=== PATIENT | male | born 1955 | race Caucasian/White ===

== ENCOUNTER 2020-03-24 08:58 | Outpatient (CLI) | payer MEDICARE, OTHER, SELFPAY ==
--- NOTE | ~2020-03-24 | CT_ITS ---
EXAMINATION: CT abdomen pelvis w con DATE: 03/24/2020 09:34 INDICATION: Prostate cancer TECHNIQUE: Computed tomography (CT) of the abdomen and pelvis was performed with 100 cc Omnipaque 350 intravenous contrast. The dose-length product was 1234.51 mGy-cm. Automated exposure control and ite rative reconstruction technique were employed. COMPARISON: None. FINDINGS: Heart size normal. No significant pleural or pericardial effusion. There are scattered calc ified granulomas. There are small low-density lesions in the liver and spleen, most likely benign cys ts. Gallbladder is present. The pancreas, adrenal glands are unremarkable. There are left renal parapelvic cysts. There are bilat eral renal cysts. Prostate gland is enlarged. Bladder wall is mildly thickened. Nonobstructive bowel gas pattern. No blastic or lytic lesions. No acute osseous abnormality. No free air or free fluid. IMPRESSION: 1. No evidence for metastatic disease. 2: Bladder wall thickening which may be due to outlet obstruction from enlarged prostate gland and/or cystitis. Reviewed, dictated and finalized at location B. BRAKE TECHNICIAN
[2020-03-24 09:28] LABS: Estimated Glomerular Filt Rate > 60
== END 2020-03-24 08:59 | disposition home or self-care (01) ==
PROVIDERS: PCP Internal Medicine; Visit Provider Urology
DX: C61 Malignant neoplasm of prostate (principal)
CPT/HCPCS: 74177; Q9967

== ENCOUNTER 2020-06-06 07:47 | Outpatient (CLI) | payer MEDICARE, OTHER, SELFPAY ==
--- NOTE | ~2020-06-06 | XR_ITS ---
XR chest 2V DATE: 06/06/2020 08:44 INDICATION: Preoperative evaluation. Prostate cancer. Hypertension. TECHNIQUE: PA and lateral views COMPARISON: None FINDINGS: Normal heart size. Mild aortic tortuosity. No hilar or mediastinal enlargement. No pulmonary infiltrate or consolidation, pleural effusion or pulmonary vascular congestion or pneumo thorax is detected. IMPRESSION: No active cardiopulmonary disease Reviewed, dictated and finalized at location A. RD CHANGER
--- NOTE | 2020-06-06 08:26 | ECG_ITS ---
Measurements Intervals [place] Rate: 69 P: 37 NH: 151 QRS: -31 QRSD: 105 T: 37 QT: 381 QTc: 411 Interpretive Statements SINUS RHYTHM LEFT AXIS DEVIATION BORDERLINE T WAVE ABNORMALITY- INFERIOR LEADS BASELINE ARTIFACT- I, II, AVR, V3-V5 BORDERLINE ECG Electronically Signed On 06-06-2020 8:57:52 COMMISSIONING EDITOR by Darrius Muniz D.O.
[2020-06-06 09:10] LABS: Add Urine Microscopic? NO; Appearance Urine Clear (Clear); Bilirubin Urine Negative (Negative); Blood Urine Negative (Negative); Color Urine Straw (Yellow); Glucose Urine UA Negative (Negative); Ketones Urine Negative (Negative); Leukocyte Esterase Ur Negative LEU/UL (Negative); Nitrate Urine Negative (Negative); Protein Urine Negative (Negative); Specific Grav Ur 1.016 (1.001-1.035); Urobilinogen Urine Negative mg/dL (<2.0)
[2020-06-06 09:17] LABS: Alanine Aminotransferase 24 U/L (4-50); Albumin Level 4.1 g/dL (3.5-5.1); Alkaline Phosphatase 70 U/L (38-126); Anion Gap 5 mmol/L (8-16); Aspartate Amino Transferase 27 U/L (17-59); Bilirubin,Total 0.5 mg/dL (0.2-1.3); Blood Urea Nitrogen 26 mg/dL (9-20); Calcium 9.2 mg/dL (8.4-10.2); Carbon Dioxide 31 mmol/L (22-30); Chloride 104 mmol/L (98-107); Estimated Glomerular Filt Rate > 60; Glucose 132 mg/dL (75-110); Potassium 4.1 mmol/L (3.4-5.0); Sodium 140 mmol/L (137-145)
[2020-06-06 09:21] LABS: INR 0.9; Prothrombin Time 12.3 Seconds (11.1-14.7)
[2020-06-06 09:23] LABS: Partial Thromboplastin Time 28.9 SECONDS (22.3-36.8)
== END 2020-06-06 07:48 | disposition home or self-care (01) ==
PROVIDERS: PCP Internal Medicine; Visit Provider Urology
DX: C61 Malignant neoplasm of prostate (principal); Z01.818 Encounter for other preprocedural examination; R94.31 Abnormal electrocardiogram [ECG] [EKG]
CPT/HCPCS: 36415; 71046; 80053; 81003; 85610; 85730; 86850; 86900; 86901; 93005

== ENCOUNTER → 2020-06-13 00:08 | Outpatient (CLI) | payer MEDICARE, OTHER, SELFPAY ==
[2020-06-13 19:32] LABS: SARS-CoV-2 RNA PCR Negative
== END ==
PROVIDERS: PCP Internal Medicine; Visit Provider Urology
DX: Z01.812 Encounter for preprocedural laboratory examination (principal); Z20.822 Contact with and (suspected) exposure to COVID-19; C61 Malignant neoplasm of prostate
CPT/HCPCS: C9803; U0003; U0005

== ENCOUNTER 2020-06-16 01:38 | Day surgery (SDC) | payer MEDICARE, OTHER, SELFPAY ==
[2020-06-06 08:23] VITALS: BP 148/81; PULSE 70; RESP 16; TEMP 37.1; O2SAT 100; BMI 32.6
--- NOTE | 2020-06-13 07:39 | P.HP_ITS ---
H&P: HPI History of Present Illness Date/Time: 06/13/20 07:39 Chief Complaint: Prostate cancer Narrative: Reji Diaz is a 64 year old male who recently had progression in his PSA to 38.3. He had had 1 prior negative biopsy but on the 2nd occasion biopsy showed adenocarcinoma [place] 6, 3+4=7 and 4+3=7 in 2 of [address] scan of the abdomen pelvis and chest x-ray were unremarkable. After discussion of therapeutic options including active surveillance, radiation therapy at various forms, androgen deprivation therapy in robotic prostatectomy he has elected for the latter. He is aware of the risk including, but not limited to, adverse cardiopulmonary events, rectal injury, erectile dysfunction and urinary incontinence. Review of Systems 2 Cardiovascular: Cardiovascular: Denies chest pain, Denies lightheadedness, Denies palpitations and Denies dyspnea Respiratory: Respiratory: Denies dyspnea Gastrointestinal: Gastrointestinal: Denies diarrhea, Denies nausea and Denies vomiting Genitourinary: Genitourinary: Denies hematuria and Denies dysuria Endocrine: Endocrine: Denies palpitations [facility] Social History Social History Smoking packs per day: 2 Smoking cigarettes per day: 40.0 Years smoked: 16 Smoking pack-years: 32.00 Smoking status: Former smoker Tobacco type: cigarettes Smoking end date: 04/22/89 Alcohol intake: current Gender identity (if verbalized by the patient): Male Spiritual care concerns: No Meds Home Medications and Allergies Home Medications Medication Instructions Recorded Confirmed Type amlodipine 10 mg PO DAILY 09/10/19 06/06/20 History hydrochlorothiazide 12.5 mg PO DAILY 09/10/19 06/06/20 History losartan 50 mg PO DAILY 09/10/19 06/06/20 History aspirin [Aspir-81] 81 mg PO DAILY 04/25/20 06/06/20 History cholecalciferol (vitamin D3) 50 mcg PO DAILY 06/06/20 06/06/20 History Allergies Allergy/AdvReac Type Severity Reaction Status Date / Time No Known Allergies Allergy Verified 06/06/20 07:54 Exam Const: General: no acute distress Resp: Effort & Inspection: normal respiratory effort GI: Inspection: non-distended GI Palp: No abdominal tenderness and No Guarding due to palpation present (GI) Auscultation: normal bowel sounds Assessment and Plan Assessment and plan (1) Prostate cancer: Code(s): C61 - Malignant neoplasm of prostate Status: Acute Assessment and Plan: * Robotic assisted radical prostatectomy and bilateral pelvic lymphadenectomy.
[2020-06-16] VITALS (33 sets, daily range): BP systolic 63–134; BP diastolic 39–90; PULSE 55–93; RESP 14–20; TEMP 36.2–37.2; O2SAT 94–100; BMI 31.2
--- NOTE | 2020-06-16 06:29 | WPDHPUPDATE1 ---
History and Physical Update Update Date/Time: 06/16/20 06:29 History and Physical has been reviewed, including an updated exam of the patient. There are NO changes in the patient's condition. Risks, benefits, and alternatives have been discussed and questions answered. Patient agrees to proceed with procedure.
[2020-06-16] MEDS: LACTATED RINGERS 1,000 ML 30 ML IV CONT ×6 (06:56→14:50)
--- NOTE | 2020-06-16 07:08 | WPDANESEPPF ---
Anes - Initial Pre Proc Eval Procedure: Operation Date: 06/16/20 07:30 Proposed Procedures p Robotic Assisted Prostatectomy With Bilateral Pelvic Lymph Node Dissection - Rupesh Christopher MD Date/Time: 06/16/20 07:08 Surgeon: Rupesh Christopher MD Pre Op Diagnosis: Prostate CA Patient Data Age: 64 Gender: M Height: 6 ft 4 in Weight: 116.5 kg Last Vital Signs Temp 97.7 F 06/16/20 06:05 Pulse 68 06/16/20 06:05 Resp 14 06/16/20 06:05 BP 134/80 06/16/20 06:05 Pulse Ox 100 06/16/20 06:05 Allergies Allergy/AdvReac Type Severity Reaction Status Date / Time No Known Allergies Allergy Verified 06/16/20 06:08 Home Medications Medication Instructions Recorded Confirmed Type amlodipine 10 mg PO DAILY 09/10/19 06/16/20 History hydrochlorothiazide 12.5 mg PO DAILY 09/10/19 06/16/20 History losartan 50 mg PO DAILY 09/10/19 06/16/20 History aspirin [Aspir-81] 81 mg PO DAILY 04/25/20 06/16/20 History cholecalciferol (vitamin D3) 50 mcg PO DAILY 06/06/20 06/16/20 History Patient hx anesthesia problems: none Family hx anesthesia problems: none PMFSH Past Medical History Medical History (Updated 06/16/20 @ 07:08 by Yann Rain MD) Hypertension Prostate cancer Social History Social History Smoking packs per day: 2 Smoking cigarettes per day: 40.0 Years smoked: 16 Smoking pack-years: 32.00 Smoking status: Former smoker Tobacco type: cigarettes Smoking end date: 04/22/89 Alcohol intake: current Alcohol use details: ONE DRINK PER MONTH Living arrangements: with family Gender identity (if verbalized by the patient): Male Spiritual care concerns: No Anes - Eval Final PreProcedure Day of Procedure 06/16/20 07:08 Patient weight: obese Heart: regular rate and rhythm Lungs: clear to auscultation Airway: Mallampati scale class II Neurological: alert and oriented Last oral intake: >/= 8 hours ASA classification: III Emergent: no Anesthetic plan: proceed Anesthesia type and monitoring: general ETT and standard monitoring Informed Consent: The patient's anesthetic plan and its attendant risks and benefits were discussed with the patient/family/POA. Questions were solicited and answers provided to the satisfaction of the patient/family/POA.
[2020-06-16] MEDS: ceFAZolin 2 GM/D5W 50 ML 2 GM/50 ML BAG IVPB (07:26)
--- NOTE | 2020-06-16 11:05 | PM.PROC ---
Procedure Note - Detailed Date of procedure: 06/16/20 Pre-op diagnosis: Prostate CA Post-op diagnosis: same Procedure performed: Robotic-assisted radical prostatectomy, bilateral pelvic lymphadenectomy Description of procedure: The patient was brought to the operative suite, where he was prepped and draped in routine sterile fashion while in a dorsal lithotomy, deep Trendelenburg position. A supraumbilical 10 mm trocar was placed after insufflation of the abdomen with a Veress needle. Three robotic ports were then placed under direct vision. Two of these were placed in the right lower quadrant - 10 cm and 20 cm lateral to, and in line with, the umbilicus. A third robotic trocar was placed 10 cm to the left of the umbilicus, and 20 cm to the left of the umbilicus, a 12 mm standard laparoscopic trocar was placed to be used as an life enrichment assistant port. Lastly, a 5 mm trocar was placed in the left upper quadrant midway between the umbilicus and the left robotic trocar. Attention was then turned to the prostatectomy. I opted for a posterior approach in this patient. An incision was made in the parietal peritoneum along the posterior bladder/posterior prostate about 2 cm above the reflection of the peritoneum over the anterior rectum. The seminal vesicles and vas deferens were immediately identified. Dissection is undertaken in a fashion so as to avoid electrocautery as much as possible, particularly near the tips of the seminal vesicles. Dissection was also carried out in the midline so as to avoid any encounters with the ureters. The vas deferens and the seminal vesicles were dissected in their entirety to the base of the prostate. The plane anterior to Denoviller's fascia, anterior to the rectum and posterior to the prostate was then developed. I then dropped the bladder by incising the anterior parietal peritoneum just lateral to the median umbilical ligaments bilaterally. The bladder was dropped from the anterior abdominal and pelvic wall. The endopelvic fascia was identified and incised bilaterally, allowing for dissection of the posterior-lateral aspect of the prostate. The puboprostatic ligaments were transected near their origin from the posterior pubic ramus. This posterior lateral dissection of the prostate is also undertaken in a fashion so as to avoid electrocautery as much as possible. The dorsal vein of the penis is then secured with an 0 -Vicryl ligature. Attention is then turned to the bladder neck. The anterior bladder neck is incised at the vesico-prostatic junction. The previously placed urethral catheter was drawn through the urethrotomy. A very small bladder neck was maintained throughout the remainder of this dissection. The posterior bladder neck was incised in a fashion so as to avoid any injury to the ureteral orifices. Again, the small aperture of the bladder neck was maintained. The previously dissected vas deferens and the seminal vesicles were brought through the posterior bladder neck incision. The lateral prostatic pedicles were then carefully dissected from the lateral aspect of the prostate bilaterally. The prostatic pedicles were secured with Weck clips and transected. The neurovascular bundles were carefully dissected from the posterior-lateral aspect of the prostate. The dorsal vein of the penis was incised with electrocautery. Using cold scissors, the urethra was incised. After withdrawing the previously placed urethral catheter, the posterior urethra was sharply incised, as was the rectalurethralis muscle. Attention was then turned to a bilateral pelvic lymphadenectomy. The limits of this dissection were similar bilaterally. Specifically, the limits were the bifurcation of the common iliac vein proximally, the inguinal ligament distally, the obturator nerve posteriorly and the anterior aspect to the external iliac vein laterally. This dissection was undertaken with care to avoid any injury to the obturator nerve. The prostate,
[2020-06-16] MEDS: ePHEDrine sulfate INJ 50 MG/ML AMPUL 10 MG IV PUSH ×5 (11:45→13:48)
--- NOTE | 2020-06-16 12:02 | SUR.PHASEI ---
1145- CALLED DR. GARCIA TO REPORT PT LOW BP. DR. GARCIA TO PACU. DR. DAN BEDSIDE. DR. GARCIA GAVE EPHEDRINE 10 MG AT A TIME, TOTAL DOES OF [address] DAN STATED TO GIVE PT ANOTHER LITER OF LR. UPDATED DR. DAN THAT IT WOULD BE PT 4TH LITER OF FLUIDS. PT AWAKE, DENIES PAIN OR NAUSEA. 6 SURGICAL SITES ON ABD DRY AND INTACT.
--- NOTE | 2020-06-16 12:19 | SUR.PHASEI ---
1219- PT AWAKE. STATED HIS STOMACH FEELS FULL. LANG CATH IN PLACE. LOW OUTPUT SINCE ADMIT TO PACU. WILL CONTINUE TO MONITOR. DR. DAN AWARE
--- NOTE | 2020-06-16 12:25 | SUR.PHASEI ---
1225- DR. DAN AT BEDSIDE TO FLUSH LANG CATH. ALSO PERFORMED A BLADDER SCAN.
--- NOTE | 2020-06-16 13:51 | SUR.PHASEI ---
1340 PT STATES HE FEELS LIGHT HEADED. BP 63/46. HOB LOWERED & DR GARCIA CALLED & MADE AWARE. 1342 DR GARCIA AT BEDSIDE- EPHEDRINE 10MG X2 GIVEN PER
[2020-06-16] MEDS: LACTATED RINGERS 1,000 ML 125 ML IV CONT (20:23)
[2020-06-17] VITALS: PULSE 76
[2020-06-17 04:00] VITALS: BP 107/65; PULSE 78; PULSE 80; RESP 16; TEMP 36.4; O2SAT 95
[2020-06-17 05:16] LABS: Hematocrit 32.5 % (42.0-52.0); Hemoglobin 10.9 g/dL (14.0-18.0)
[2020-06-17] MEDS: LACTATED RINGERS 1,000 ML 125 ML IV CONT (05:18)
[2020-06-17 05:31] LABS: Anion Gap 3 mmol/L (8-16); Blood Urea Nitrogen 21 mg/dL (9-20); Calcium 7.9 mg/dL (8.4-10.2); Carbon Dioxide 29 mmol/L (22-30); Chloride 103 mmol/L (98-107); Estimated CRCL calculation 71 ml/min; Estimated Glomerular Filt Rate 55; Glucose 120 mg/dL (75-110); Potassium 4.1 mmol/L (3.4-5.0); Sodium 135 mmol/L (137-145)
--- NOTE | 2020-06-17 07:09 | WPDUROPN2 ---
Progress Note: A&P Assessment and Plan (1) Prostate cancer: Code(s): C61 - Malignant neoplasm of prostate Status: Acute Assessment and Plan: After couple episodes of hypotension in PACU, blood pressure stable overnight. No subjective dizziness and no tachycardia. U/O excellent, creat. stable. Increase diet/ambulation this morning. Possible discharge this afternoon. Will hold Losartan this morning Subjective Subjective Date/Time Seen: 06/17/20 07:09 POD #1: RALP - comfortable, tolerating diet / no complaints Review of Systems Cardiovascular: Cardiovascular: Denies chest pain, Denies lightheadedness, Denies palpitations and Denies dyspnea Respiratory: Respiratory: Denies dyspnea Gastrointestinal: Gastrointestinal: Denies diarrhea, Denies nausea and Denies vomiting Genitourinary: Genitourinary: Denies hematuria and Denies dysuria Endocrine: Endocrine: Denies palpitations Exam Const: General: no acute distress Resp: Effort & Inspection: normal respiratory effort GI: Inspection: non-distended GI Palp: No abdominal tenderness and No Guarding due to palpation present (GI) Auscultation: normal bowel sounds Objective Data Vital Signs Vital Signs: Vital Signs - 24 hr 06/16/20 11:14 06/16/20 11:29 06/16/20 11:44 Temperature 98.9 F Pulse Rate 71 64 60 Respiratory Rate 18 19 16 Blood Pressure 77/51 L 63/51 L 65/39 L Pulse Oximetry 94 98 99 06/16/20 11:59 06/16/20 12:14 06/16/20 12:29 Temperature Pulse Rate 63 67 67 Respiratory Rate 18 15 19 Blood Pressure 82/46 L 84/43 L 91/46 L Pulse Oximetry 99 100 95 06/16/20 12:40 06/16/20 12:55 06/16/20 13:10 Temperature Pulse Rate 64 74 73 Respiratory Rate 14 14 16 Blood Pressure 86/59 L 97/60 L 103/61 Pulse Oximetry 95 95 95 06/16/20 13:25 06/16/20 13:40 06/16/20 13:45 Temperature 97.1 F L Pulse Rate 70 55 L 59 L Respiratory Rate 16 16 18 Blood Pressure 91/58 L 63/46 L 78/53 L Pulse Oximetry 100 99 94 06/16/20 13:55 06/16/20 14:10 02/25/21 14:25 Temperature Pulse Rate 67 80 77 Respiratory Rate 16 18 18 Blood Pressure 103/55 L 100/58 L 107/64 Pulse Oximetry 94 95 95 06/16/20 14:40 06/16/20 14:50 06/16/20 15:05 Temperature Pulse Rate 77 80 76 Respiratory Rate 16 16 16 Blood Pressure 106/63 76/46 L 96/60 L Pulse Oximetry 97 96 95 06/16/20 15:20 06/16/20 15:35 06/16/20 15:50 Temperature 98.0 F Pulse Rate 75 86 80 Respiratory Rate 16 16 16 Blood Pressure 108/67 94/69 L 100/68 Pulse Oximetry 96 97 98 06/16/20 16:05 06/16/20 16:20 06/16/20 16:35 Temperature Pulse Rate 93 78 79 Respiratory Rate 16 18 18 Blood Pressure 100/70 105/67 110/72 Pulse Oximetry 97 98 98 06/16/20 16:50 06/16/20 17:05 06/16/20 17:20 Temperature Pulse Rate 77 76 73 Respiratory Rate 16 16 16 Blood Pressure 113/66 114/70 125/71 Pulse Oximetry 97 99 100 06/16/20 17:33 06/16/20 17:54 06/16/20 20:00 Temperature 97.7 F Pulse Rate 81 85 83 Respiratory Rate 18 20 Blood Pressure 127/90 104/50 L Pulse Oximetry 97 96 06/16/20 22:00 06/16/20 23:59 06/17/20 00:00 Temperature 97.7 F Pulse Rate 83 73 76 Respiratory Rate 20 Blood Pressure 106/51 L Pulse Oximetry 97 06/17/20 04:00 Temperature 97.5 F L Pulse Rate 78 Respiratory Rate 16 Blood Pressure 107/65 Pulse Oximetry 95 Intake/Output Intake/Output: Intake & Output 06/14/20 06/15/20 06/16/20 06/17/20 23:59 23:59 23:59 23:59 Intake Total 4350 2100 Output Total 135 2500 Balance 4215 -400 Meds/Results Medications: Active Medications Generic Name Dose Route Start Last Admin Trade Name Freq PRN Reason Stop Dose Admin Amlodipine Besylate 10 mg 06/17/20 09:00 Amlodipine Besylate 5 Mg Tablet PO DAILY JONO Hyoscyamine 0.125 mg 06/16/20 17:36 Hyoscyamine Sulfate 0.125 Mg Tablet SUBLINGUAL Q4H PRN Bladder Spasm Lactated Ringer's 1,000 mls @ 125 mls/hr 06/16/20 19:00 06/17
[2020-06-17 08:00] VITALS: BP 114/65; BP 131/68; PULSE 69; PULSE 86; RESP 18; TEMP 37.1; O2SAT 100
[2020-06-17] MEDS: amLODIPine BESYLATE 5 MG TABLET 10 MG PO (09:07)
[2020-06-17 10:00] VITALS: PULSE 73
--- NOTE | 2020-06-17 10:59 | WPDANESPN ---
Anes - Prog Note Post-Op Date/Time: 06/17/20 10:59 Cardiovascular status: normal Respiratory status: normal Airway patency: baseline Mental status: baseline Post-Op hydration status: normal Vital Signs: Last Vital Signs Temp 37.1 C 06/17/20 08:00 Pulse 73 06/17/20 10:00 Resp 18 06/17/20 08:00 BP 131/68 06/17/20 08:00 Pulse Ox 100 06/17/20 08:00 Pain Score (VAS): 0 I/O: Intake & Output 06/16/20 06/17/20 06/17/20 23:59 07:59 15:59 Intake Total 1100 2100 240 Output Total 35 2500 900 Balance 1065 400 -284 Laboratory Tests 06/17/20 04:24 06/17/20 04:24 06/17/20 06/17/20 04:24 04:24 Hgb 10.9 L D Hct 32.5 L Sodium 135 L Potassium 4.1 Chloride 103 Carbon Dioxide 29 Anion Gap 3 L BUN 21 H Creatinine 1.30 Estim Creat Clear Calc 71 Estimated GFR 55 L Glucose 120 H Calcium 7.9 L Post-procedural complaints: none Patient Feedback: Patient satisfied with anesthetic care.
--- NOTE | 2020-06-17 12:13 | PM.DS ---
DS: Admitting Diagnosis Admitting Diagnosis Admitting Diagnosis: Prostate cancer DS: Discharge Diagnosis Discharge Diagnosis (1) Prostate cancer: Code(s): C61 - Malignant neoplasm of prostate Status: Acute DS: Summary Hospital Course Hospital Course: This patient was admitted on the morning of his planned robotic prostatectomy. This procedure was uneventful, as was his postoperative course. By the evening of the procedure he was sitting at the bedside in tolerating a liquid diet. The following morning he was ambulating freely and tolerating regular food. His catheter drainage remained essentially clear throughout. His postoperative hemoglobin and serum creatinine were unremarkable. At the time of discharge he has been instructed in appropriate care for his Farris catheter with both a leg bag and bedside bag. He will be discharged with plans to follow-up in 1 week with a cystogram. Time Spent with Patient Time attestation: Total time spent providing and/or coordinating discharge services: 20 min. Exam Const: General: no acute distress Resp: Effort & Inspection: normal respiratory effort GI: Inspection: non-distended GI Palp: No abdominal tenderness and No Guarding due to palpation present (GI) Auscultation: normal bowel sounds DS: Data Data Completed and Pending Pending studies at discharge: Pending at discharge 06/16/20 10:40 Surgical [PTH] Routine Labs on day of discharge: Labs from last 24 hours 06/17/20 06/17/20 04:24 04:24 Hgb 10.9 L D Hct 32.5 L Sodium 135 L Potassium 4.1 Chloride 103 Carbon Dioxide 29 Anion Gap 3 L BUN 21 H Creatinine 1.30 Estim Creat Clear Calc 71 Estimated GFR 55 L Glucose 120 H Calcium 7.9 L Discharge Plan Discharge Patient Disposition: Home, Self-Care Discharge Instructions: 1) Farris catheter -> leg bag / bedside bag at night. 2) No lifting/straining >15lbs. x3 weeks. 3) No driving x1-week. 4) Resume normal, pre-operative diet. 5) My office will contact regarding follow-up in 1-week with cystogram. Stand Alone Forms: General Discharge Instructions Discharge Orders: Discharge Order (Routine); Ordered 06/17/20 Ordered By: Rupesh Christopher Discharge Medications: New ciprofloxacin HCl 500 mg tablet 500 mg PO Q12H Qty: 10 RF: 0 docusate sodium [Colace] 100 mg capsule 100 mg PO DAILY Qty: 30 RF: 0 hydrocodone-acetaminophen 5-325 mg tablet 1 - 2 tablet PO Q6H PRN (Reason: pain) Qty: 30 RF: 0 hyoscyamine sulfate 0.125 mg tablet 0.125 mg PO Q6H PRN (Reason: bladder spasms) Qty: 20 RF: 2 Continued hydrochlorothiazide 12.5 mg Tablet 12.5 mg PO DAILY RF: 0 Held losartan 50 mg Tablet 50 mg PO DAILY RF: 0 Hold Instructions: Resume on 06/19/20. amlodipine 10 mg Tablet 10 mg PO DAILY RF: 0 Hold Instructions: Resume on 06/19/20. aspirin 81 mg Tablet,Delayed Release (Dr/Ec) 81 mg PO DAILY RF: 0 Hold Instructions: Resume on 06/22/20. cholecalciferol (vitamin D3) 50 mcg (2,000 unit) Capsule 50 mcg PO DAILY RF: 0 Hold Instructions: Resume on 06/22/20.
== END 2020-06-17 12:53 | disposition home or self-care (01) ==
LOC: ANHSURGERY 05:53 → ANHIMU 17:02
PROVIDERS: PCP Internal Medicine; Visit Provider Urology
PROC: 0VT04ZZ Resection of Prostate, Percutaneous Endoscopic Approach (ICD-10-PCS; CPT 55867; principal; 2020-06-16 07:30)
DX: C61 Malignant neoplasm of prostate (principal); Z87.891 Personal history of nicotine dependence; Z79.82 Long term (current) use of aspirin
CPT/HCPCS: 55866; 38571; S2900; 36415; 80048; 85014; 85018; 88305; 88307; A9270; J0131; J0330; J0690; J1100; J2250; J2370; J2405; J2704; J2710; J3010; J7030; J7120; Q9968

== ENCOUNTER 2020-06-24 11:08 | Outpatient (CLI) | payer MEDICARE, OTHER, SELFPAY ==
--- NOTE | ~2020-06-24 | XR_ITS ---
EXAMINATION: XR cystogram EXAM DATE: 06/24/2020 11:46 INDICATION: One week following surgery. TECHNIQUE: Fluoroscopy used during XR cystogram performed through Farris catheter in place on patient arrival. The DAP for this procedure was 83. No prior study. FINDINGS: On distending bladder, contrast leaked posteriorly toward the left at level of prosthetic urethra, then extended into the pelvis behind the bladder, and appear to be outlining some colonic souza ustral folds, likely intraperitoneal. IMPRESSION: Prostatic urethra contrast extravasation back into pelvis and probably peritoneum. Reviewed, dictated and finalized at location A. KER IMPRESSION: Prostatic urethra contrast extravasation back into pelvis and proba demarco peritoneum.
== END 2020-06-24 11:09 | disposition home or self-care (01) ==
PROVIDERS: PCP Internal Medicine; Visit Provider Urology
DX: C61 Malignant neoplasm of prostate (principal)
CPT/HCPCS: 51600; 74430; Q9967

== ENCOUNTER 2022-02-01 07:01 | Outpatient (CLI) | payer MEDICARE, OTHER, SELFPAY ==
--- NOTE | ~2022-02-01 | XR_ITS ---
EXAMINATION: XR shoulder LT min 2V, XR shoulder RT min 2V DATE: 02/01/2022 07:24 INDICATION: Bilateral shoulder pain TECHNIQUE: 1. AP internally and externally rotated, AP oblique externally rotated and transscapular Y views of t he left shoulder were obtained. 2. AP internally and externally rotated, AP oblique externally rotated and transscapular Y views of t he right shoulder were obtained. COMPARISON: None FINDINGS: Normal alignment at both shoulders. No fracture. Mild polyarticular osteoarthritis at the bilateral acromioclavicular and glenohumeral joints. Small sclerotic bone island at the lateral head of the rig ht clavicle. Soft tissues are unremarkable. Visualized portions of the bilateral mid to upper lungs a re clear. 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 Reviewed, dictated and finalized at location B. 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
--- NOTE | ~2022-02-01 | XR_ITS ---
EXAMINATION: XR hand LT 2V, XR hand RT 2V DATE: 02/01/2022 07:25 INDICATION: Bilateral hand pain TECHNIQUE: 1. Posteroanterior, oblique and lateral views of the left hand were obtained. 2. Posteroanterior, oblique and lateral views of the right hand were obtained. COMPARISON: None. FINDINGS: Normal alignment at both hands. Prominent dorsal osteophyte at the base of the right third distal pha lanx likely related to an old healed avulsion fracture. No acute fracture. Polyarticular osteoarthrit is at the bilateral hands and wrists, moderate severity at the right triscaphe joint and mild at the bilateral distal radioulnar, first metacarpophalangeal, left triscaphe and several bilateral metacarp ophalangeal joints most prominent at the first and second metacarpal phalangeal joints and multiple i nterphalangeal joints with distal predominance. Lucency with thin sclerotic margins at the left capit ate. Soft tissues are unremarkable. IMPRESSION: 1. Polyarticular osteoarthritis at the bilateral hands and wrists, moderate at the right triscaphe pia int and otherwise mild Reviewed, dictated and finalized at location B. IMPRESSION: 1. Polyarticular osteoarthritis at the bilateral hands and wrists, moderate at the right triscaphe joint and otherwise mild
== END 2022-02-01 07:02 | disposition home or self-care (01) ==
LOC: ANHIMG 07:04
PROVIDERS: PCP Internal Medicine; Visit Provider Nurse Practitioner Family
DX: M19.011 Primary osteoarthritis, right shoulder (principal); M19.012 Primary osteoarthritis, left shoulder; M19.041 Primary osteoarthritis, right hand; M19.042 Primary osteoarthritis, left hand; M19.031 Primary osteoarthritis, right wrist; M19.032 Primary osteoarthritis, left wrist
CPT/HCPCS: 73030; 73120

== ENCOUNTER 2022-09-06 01:37 | Day surgery (SDC) | payer MEDICARE, OTHER, SELFPAY ==
[2022-08-22 13:41] VITALS: BMI 35.0
--- NOTE | 2022-09-05 15:12 | PM.HPGS ---
History of Present Illness History of Present Illness Consent: Risks, benefits, and alternatives have been discussed and questions answered. Patient agrees to proceed with procedure. Chief complaint: neoplasm screening Narrative: Reji Diaz is a 66 year old male referred for colon cancer screening. Review of Systems Review of Systems: All systems reviewed & are unremarkable except as noted in HPI and below PMFSH Past Medical History Medical History Hypertension Prostate cancer Social History Social History Smoking packs per day: 2 Smoking cigarettes per day: 40.0 Years smoked: 16 Smoking pack-years: 32.00 Smoking status: Former smoker Tobacco type: cigarettes Smoking end date: 04/22/89 Alcohol intake: current Drinks per week: 2 Alcohol use details: ONE DRINK PER MONTH Substance use type: does not use Living arrangements: with family Gender identity (if verbalized by the patient): Male Spiritual care concerns: No Meds Home Medications and Allergies Home Medications Medication Instructions Recorded Confirmed Type amlodipine 10 mg tablet 10 mg PO DAILY 09/10/19 08/22/22 History hydrochlorothiazide 12.5 mg tablet 12.5 mg PO DAILY 09/10/19 08/22/22 History aspirin 81 mg tablet,delayed 81 mg PO DAILY 04/25/20 08/22/22 History release cholecalciferol (vitamin D3) 50 50 mcg PO DAILY 06/06/20 08/22/22 History mcg (2,000 unit) capsule Allergies Allergy/AdvReac Type Severity Reaction Status Date / Time No Known Allergies Allergy Verified 09/06/22 11:59 Exam Const: General: alert Orientation/consciousness: patient oriented x3 Resp: Auscultation: clear to auscultation bilaterally Cardio: Rhythm: regular rhythm GI: GI Palp: Yes Soft to palpation and No Tenderness to palpation present (GI) Neuro: General: patient oriented x3 Assessment and Plan Assessment and plan (1) Colon cancer screening: Code(s): Z12.11 - Encounter for screening for malignant neoplasm of colon Status: Acute Assessment and Plan: Colonoscopy with possible biopsy or polypectomy or cautery or injection of substances.
[2022-09-06 12:03] VITALS: BP 159/89; PULSE 57; RESP 20; TEMP 36.1; O2SAT 98
--- NOTE | 2022-09-06 12:05 | P.PNAN_ITS ---
Anes - Initial Pre Proc Eval Procedure: Operation Date: 09/06/22 13:15 Proposed Procedures p Colonoscopy - Buster Hernandez MD Date/Time: 09/06/22 12:05 Surgeon: Buster Hernandez MD Pre Op Diagnosis: neoplasm screening Patient Data Age: 66 Gender: M Height: 1.91 m Weight: 127.3 kg Allergies Allergy/AdvReac Type Severity Reaction Status Date / Time No Known Allergies Allergy Verified 09/06/22 11:59 Home Medications Medication Instructions Recorded Confirmed Type amlodipine 10 mg tablet 10 mg PO DAILY 09/10/19 08/22/22 History hydrochlorothiazide 12.5 mg tablet 12.5 mg PO DAILY 09/10/19 08/22/22 History aspirin 81 mg tablet,delayed 81 mg PO DAILY 04/25/20 08/22/22 History release cholecalciferol (vitamin D3) 50 50 mcg PO DAILY 06/06/20 08/22/22 History mcg (2,000 unit) capsule Patient hx anesthesia problems: none Family hx anesthesia problems: none Results Review: All pre-operative results and documents have been reviewed as part of the pre-operative evaluation. [facility] Past Medical History Medical History (Updated 09/05/22 @ 15:12 by Buster Hernandez MD) Hypertension Prostate cancer Social History Social History Smoking packs per day: 2 Smoking cigarettes per day: 40.0 Years smoked: 16 Smoking pack-years: 32.00 Smoking status: Former smoker Tobacco type: cigarettes Smoking end date: 04/22/89 Alcohol intake: current Drinks per week: 2 Alcohol use details: ONE DRINK PER MONTH Substance use type: does not use Living arrangements: with family Gender identity (if verbalized by the patient): Male Spiritual care concerns: No Anes - Eval Final PreProcedure Day of Procedure 09/06/22 12:05 Patient weight: obese Heart: regular rate and rhythm Lungs: clear to auscultation Airway: Mallampati scale class II Neurological: alert and oriented Last oral intake: >/= 8 hours ASA classification: III Emergent: no Anesthetic plan: proceed Anesthesia type and monitoring: general GIVS and standard monitoring Results Review: All pre-operative results and documents have been reviewed as part of the pre- operative evaluation. Informed Consent: The patient's anesthetic plan and its attendant risks and benefits were discussed with the patient/family/POA. Questions were solicited and answers provided to the satisfaction of the patient/family/POA.
[2022-09-06] MEDS: LACTATED RINGERS 1,000 ML 150 ML IV CONT (12:17)
[2022-09-06 14:03] VITALS: BP 134/77; PULSE 48; RESP 20; O2SAT 97
[2022-09-06 14:13] VITALS: BP 137/83; PULSE 50; RESP 20; O2SAT 99
[2022-09-06 14:23] VITALS: BP 145/75; PULSE 50; RESP 20; O2SAT 98
== END 2022-09-06 14:32 | disposition home or self-care (01) ==
PROVIDERS: PCP Internal Medicine; Visit Provider Internal Medicine Gastroenterology
PROC: 0DJD8ZZ Inspection of Lower Intestinal Tract, Via Natural or Artificial Opening Endoscopic (ICD-10-PCS; CPT 45378; principal; 2022-09-06 13:15)
DX: Z12.11 Encounter for screening for malignant neoplasm of colon (principal); K63.5 Polyp of colon; I10 Essential (primary) hypertension; C61 Malignant neoplasm of prostate; Z79.82 Long term (current) use of aspirin; Z87.891 Personal history of nicotine dependence
CPT/HCPCS: 45380; 88305; J2704; J7120

== ENCOUNTER 2022-11-02 12:31 | Outpatient (CLI) | payer MEDICARE, OTHER, SELFPAY ==
--- NOTE | ~2022-11-02 | PE_ITS ---
EXAMINATION: PET_PETPSMAST_PT DATE: 11/02/2022 15:11 INDICATION: Prostate cancer TECHNIQUE: 10.504 mCi of pipflufolastat F-18 ([id number]) was administered i.v. Low dose computed t omography (CT) images were acquired from the base of the brain to the base of the brain to the proxim al thighs for attenuation correction and anatomic localization. Positron emission tomography (PET) im ages were acquired in the same distribution beginning 95 minutes after injection. Images including fu sed PET/CT images were reconstructed in axial, coronal, and sagittal planes. Automated exposure contr ol technique was employed. The dose-length product was 1087.50mGy-cm. COMPARISON: CT abdomen pelvis dated 03/24/2020 FINDINGS: Head/neck: Typical pattern of symmetric physiologic increased activity in the lacrimal, parotid and submandibula r glands as well as along the mucosa of the nasal and oral cavities, the mitesh-, naso- and hypopharynx, the glottis and esophagus. No pathologically enlarged cervical lymphadenopathy or suspicious foci of increased uptake in the visualized head or neck. Chest: Mild emphysema with upper lobe predominance. No suspicious pulmonary nodules, pneumonia, pulmonary ed fabiana or pleural effusion. Heart size is normal. Small amount of atherosclerotic coronary artery calcif ication. Aortic valve calcification. No pericardial effusion. Thoracic aorta is normal in caliber. No pathologically enlarged or PSMA avid thoracic lymphadenopathy. Abdomen/pelvis/proximal thighs: Physiologic renal accumulation and excretion of activity in the kidneys, bladder and along portions o f ureters. Postoperative change of interval prostatectomy. No evident nodular soft tissue density sug gest residual/locally recurrent disease on CT imaging. The increased activity at the prostatectomy be d appears to be confined to the urinary activity in the bladder. Normal degree and slightly heterogen ous pattern of increased uptake throughout the liver and spleen without radiologic correlate or domin ant PSMA avid lesion. A few small splenic calcifications consistent with old granulomatous disease. T he gallbladder, pancreas and bilateral adrenal glands are normal. Moderate uptake scattered throughou t the bowels with typical duodenal and proximal jejunal predominance and without radiologic correlate , also likely physiologic. Normal appendix. Small fat-containing left inguinal hernia. No other abnor mal foci of increased uptake or pathologically enlarged lymphadenopathy in the abdomen, pelvis or pro ximal thighs. Musculoskeletal: Moderate lower cervical and lower lumbar spondylosis. Tiny bone island at the left femoral head. No s uspicious lytic, blastic or PSMA avid bone lesions to suggest metastatic disease. IMPRESSION: 1. Interval prostatectomy with no evident residual/locally recurrent or metastatic disease. Reviewed, dictated and finalized at location A. IMPRESSION: 1. Interval prostatectomy with no evident residual/locally recurrent or metasta tic disease.
== END 2022-11-02 12:32 | disposition home or self-care (01) ==
PROVIDERS: PCP Internal Medicine; Visit Provider Urology
DX: C61 Malignant neoplasm of prostate (principal)
CPT/HCPCS: 78815; A9595

== ENCOUNTER 2024-01-23 13:26 | Outpatient (CLI) | payer MEDICARE, OTHER, SELFPAY ==
--- NOTE | ~2024-01-23 | PE_ITS ---
EXAMINATION: PET_PETPSMAST_PT DATE: 01/23/2024 15:51 INDICATION: Prostate cancer TECHNIQUE: 4.33 mCi of Illucix Ga-68([id number]) was administered i.v. Low dose computed tomog nora (CT) images were acquired from the base of the brain to the base of the brain to the proximal t highs for attenuation correction and anatomic localization. Positron emission tomography (PET) images were acquired in the same distribution beginning 85 minutes after injection. Images including fused PET/CT images were reconstructed in axial, coronal, and sagittal planes. Automated exposure control t echnique was employed. The dose-length product was 1352.99mGy-cm. COMPARISON: 11/02/2022 FINDINGS: Head/neck: Typical pattern of symmetric physiologic increased activity in the lacrimal, parotid and submandibula r glands as well as along the mucosa of the nasal and oral cavities, pharynx and hypopharynx. No path ologically enlarged cervical lymphadenopathy or suspicious foci of increased uptake in the visualized head or neck. Chest: Mild emphysema. Small calcified nodules in the superior segment of the left lower lobe and unchanged 5 mm likely intrafissural lymph node without evident PSV may activity along the left major fissure. N o other suspicious pulmonary nodules, pneumonia, pulmonary edema or pleural effusion. Heart size is n ormal. Atherosclerotic coronary artery calcific lesions and aortic valve calcification. No pericardia l effusion. Thoracic aorta is normal in caliber. No pathologically enlarged or PSA may avid thoracic lymphadenopathy. Abdomen/pelvis/proximal thighs: Physiologic renal accumulation and excretion of activity in the kidneys, partially decompressed bladd er and along portions of ureters. Status post prostatectomy with no evident abnormal soft tissue or a bnormal PSA may uptake to suggest residual or recurrent disease. Normal degree and slightly heterogen ous pattern of increased uptake throughout the liver and spleen without radiologic correlate or domin ant PSMA avid lesion. Small hepatic and splenic calcifications consistent with old granulomatous dise ase. The gallbladder, pancreas and bilateral adrenal glands are normal. Moderate uptake scattered thr oughout the bowels with typical duodenal and proximal jejunal predominance and without radiologic cor relate, also likely physiologic. Normal appendix. No other abnormal foci of increased uptake or patho logically enlarged lymphadenopathy in the abdomen, pelvis or proximal thighs. Musculoskeletal: Moderate lower cervical and lower lumbar spondylosis. Unchanged tiny bone island at the left femoral head. No other suspicious lytic, blastic or PSV may avid bone lesions to suggest metastatic disease. IMPRESSION: 1. No abnormal PSMA avid lesions to suggest recurrent or metastatic prostate cancer. Reviewed, dictated and finalized at location A. IMPRESSION: 1. No abnormal PSMA avid lesions to suggest recurrent or metastatic prostate ca ncer.
== END 2024-01-23 13:27 | disposition home or self-care (01) ==
PROVIDERS: PCP Internal Medicine; Visit Provider Urology
DX: C61 Malignant neoplasm of prostate (principal)
CPT/HCPCS: 78815; A9596